=== PATIENT | male | born 1955 | race Caucasian/White ===

== ENCOUNTER 2018-09-07 05:31 | Observation (INO) | payer BC, OTHER ==
[~2018-09-07 05:31] MED LIST: Buffered Lidocaine 1% SYRIN* 1 ML/SYRINGE INTRADERM ONE; Bupivacaine 0.5%* 50 ML VIAL ONE; Lactated Ringers 1000 ML Bag* 1,000 ML IV SCH
[2018-09-07] MEDS ORDERED: Buffered Lidocaine 1% SYRIN* 1 ML/SYRINGE INTRADERM ONE (05:58)
[2018-09-07] MEDS ORDERED: ceFAZolin 2 GM PREMIX in ORs 2 GM/50 ML BAG IVPB ONE (05:58)
[2018-09-07] MEDS ORDERED: Lactated Ringers 1000 ML Bag* 1,000 ML IV SCH (06:00)
[2018-09-07] MEDS ORDERED: Sodium Citrate/Citric Acid* 15 ML UDC PO ONE (06:00)
[2018-09-07] MEDS ORDERED: Bupivacaine 0.25% SDV PF* 10 ML VIAL INJ ONE (07:14)
[2018-09-07] MEDS ORDERED: Bupivacaine 0.5%* 50 ML VIAL ONE (07:14)
[2018-09-07] MEDS ORDERED: Lidocaine 2% PF * 5 ML VIAL ONE (07:15)
[2018-09-07] MEDS ORDERED: Propofol* 10 MG/ML 20 ML BTL ONE (07:15)
[2018-09-07] MEDS ORDERED: Naloxone* 0.4 MG/ML 1 ML VIAL IV PRN (07:21)
[2018-09-07] MEDS ORDERED: Sodium Citrate/Citric Acid* 15 ML UDC ONE (07:25)
[2018-09-07] MEDS ORDERED: fentaNYL* 50 MCG/ML 2 ML VIAL (100 MCG VIAL) ONE ×2 (07:33→09:36)
[2018-09-07] MEDS ORDERED: Ondansetron INJ* 2 MG/ML VIAL ONE (08:44)
[2018-09-07] MEDS ORDERED: Dexamethasone IV* 4 MG/ML 1 ML (4 MG) ONE (08:44)
[2018-09-07] MEDS ORDERED: Ketorolac INJ* 30 MG/ML 1 ML VIAL ONE (08:44)
[2018-09-07] MEDS ORDERED: Ondansetron INJ* 2 MG/ML VIAL IV PRN (09:36)
[2018-09-07] MEDS ORDERED: Magnesium Hydroxide LIQ* 30 ML UDC PO PRN (09:36)
[2018-09-07] MEDS: fentaNYL* 50 MCG/ML 2 ML VIAL (100 MCG VIAL) IV PRN ×4 (09:37→10:15)
[2018-09-07] MEDS ORDERED: Acetaminophen IV 1GM/100ML * 100 ML ONE (09:44)
[2018-09-07] MEDS: oxyCODONE TAB* 5 MG TAB PO PRN ×3 (10:57→21:17)
--- NOTE | 2018-09-07 11:28 | OP ---
Operative Report - Blank - Operative Report Date of Operation: 09/07/18 Note: PATIENT: Luiz Lam DATE OF : 1955 DATE OF SURGERY: 09/07/2018 SURGEON: Ayden Max MD GAS METER CHECKER: CHASE He, whos assistance was necessary for positioning, retraction, help with instrumentation, and closure. ANESTHESIOLOGIST: Dr. Carey PREOPERATIVE DIAGNOSIS: Left painful 3rd hammertoe. 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 POSTOPERATIVE DIAGNOSIS: Left painful 3rd hammertoe. 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 OPERATION: 1. Left 3rd hammertoe correction with PIP resection arthroplasty 2. Left Achilles tendon lengthening 3. Left flexor hallucis longus (FHL) tendon lengthening 4. Left flexor digitorum longus (FDL) tendon lengthening 5. Left posterior tibial tendon (PTT) lengthening ANESTHESIA: GETA IMPLANTS: none TOURNIQUET TIME: Less than 2 hours minutes with a well-padded thigh tourniquet at 250mmHg SPECIMENS: none ESTIMATED BLOOD LOSS: minimal COMPLICATIONS: none STATUS: Stable from the operating room to the recovery room and then home. INDICATIONS FOR PROCEDURE: Aj has CP and a left foot equinovarus contracture and painful 3rd hammertoe. Both operative and non operative treatment alternatives were reviewed. Further, the nature and risks of surgery were reviewed in careful detail in the office as well as in the preoperative holding area. Our discussions regarding the risks of surgery included, but were not limited to, infection, wound problems, nerve injury, neuroma, RSD, persistent symptoms, blood clot, rupture, failure of the surgery, and even the remote chance of catastrophic complication. DESCRIPTION OF PROCEDURE: The patient was seen in the preoperative holding unit and informed written consent was obtained. The appropriate extremity was marked. The patient was then brought to the operating room and carefully positioned on the operating room table in the prone position. Anesthesia was induced. All bony prominences were padded with great care. A well-padded thigh tourniquet was placed. A chlorhexidine based pre-scrub was performed followed by a chloraprep prep and drape in standard sterile fashion. A surgical safety pause was then conducted in which we confirmed the appropriate patient, extremity, planned procedure, availability of equipment, indication and administration of prophylactic antibiotics, and DVT prophylaxis in the form of a compression boot on the non- surgical extremity. Exsanguination of the extremity was performed and the tourniquet was inflated. I began with an extensile longitudinal incision over the posterior medial ankle curved to the medial foot. I kept full thickness flaps anteriorly and posteriorly. I dissected out the Achilles tendon posteriorly. I then performed the cuts for a Z-lengthening. This allowed great dorsiflexion of the ankle past neutral. I then dissected out the posterior tibial tendon, which was dislocated from behind the medial malleolus. I then performed the cuts for a Z-lengthening. This helped correct the varus contracture of the foot. I was now able to bring the foot into a plantigrade position quite easily. Unfortunately, the hallux and the lesser toes were then flexed because of contracture of the FHL and FDL tendons. At the tarsal tunnel, I dissected out the FHL and FDL tendons. The posterior tibial nerve was protected throughout. I performed cuts for a Z-lengthening of both the FHL and FDL tendons. This allowed the toes to sit neutral. I then used 0 Ethibond suture to repair the PTT, FHL, and FDL tendons in a lengthened position. I used #2 Ethibond suture to repair the Achilles tendon in a lengthened position. Ankle motion was now nice and supple, and the foot easily came into a plantigrade position. I then reduced the tendons of the tarsal tunnel, including a chronically dislocated posterior tibial tendon. The retinacular tissue was repaired with a #1 Vicryl suture, and this held the tendons well reduced behind the medial malleolus. The Achilles tendon was then repaired in a lengthened position with #2 Fiberwire. This allowed me to passively dorsiflex the ankle past neutral. I then made an incision over the 3rd toe PIP joint and taken down to the level of bone and joint. The collateral ligaments were released on both sides. I then used a small oscillating saw to osteotomize the distal aspect of the proximal phalanx. This was then excised. I then placed a 0.062 K wire through the toe in an antegrade/retrograde fashion. The toe sat nice and straight clinically. There was no residual extension deformity appreciated at the MTP joint, so I decided not to perform a joint release and extensor tendon lengthening. The wounds were then copiously irrigated and meticulously closed in layers utilizing 3-0 Monocryl and 3-0 nylon. A sterile dressing was then applied followed by a splint with the ankle in a neutral position. The patient was then awakened from anesthesia and transferred to the recovery room in stable condition. There were no complications. All needle and sponge counts were correct at the end of the case. ATTESTATION: I attest I was present and scrubbed and performed the critical portions of the procedure myself. POSTOPERATIVE PLAN: The patient will follow-up in 2 weeks for likely suture removal and transition to a short leg nonweightbearing cast.
[2018-09-07] MEDS: Morphine INJ* 2 MG/ML 1 ML SYRINGE (TWO MG - NEW SYRINGE VERSION) IV PRN (12:52)
[2018-09-07] MEDS: tiZANidine TAB* 2 MG PO SCH ×2 (14:33→21:16)
[2018-09-07] MEDS: ceFAZolin 1 GM ADVAN(*) 1 GM in NS 0.9% 50 ML* 50 ML IVPB SCH (16:46)
[2018-09-07] MEDS ORDERED: Temazepam CAP* 15 MG PO PRN (21:00)
[2018-09-07] MEDS: Calcium/Vitamin D TAB 250/125* TAB PO SCH (21:15)
[2018-09-07] MEDS: Docusate CAP* 100 MG PO SCH (21:16)
[2018-09-07] MEDS: Acetaminophen TAB* 325 MG PO SCH (21:17)
--- NOTE | 2018-09-07 22:12 | CONS ---
CC: Dr. Ayden Max; Dr. Kushal Blood; Dr. Sanju Talley.* CONSULTATION REPORT: DATE OF CONSULT: 09/07/18 CONSULTING PROVIDER: Dr. Ayden Max. MY ATTENDING WHILE IN THE HOSPITAL: Dr. Kushal Blood. PRIMARY CARE PROVIDER: Dr. Sanju Talley. REASON FOR CONSULTATION: Co-management of comorbid medical conditions. HISTORY OF PRESENT ILLNESS: Mr. 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 The patient was preoperatively optimized by his primary care provider. The patient was examined postoperatively. There were some concerns as the patient had a moderately elevated blood pressure and pulse postoperatively as well as some pain which he described as indigestion. Due to concern for ischemia, a troponin, CK-MB, and EKG were ordered, none of which showed concern for ischemia. The patient felt fine at the time of evaluation. The patient had minimal pain in his leg with good response to morphine for pain control. The patient denied chest pain, shortness of breath, dizziness, palpitations, nausea, vomiting, abdominal pain. The patient had already urinated after his catheter had been removed preoperatively. The patient denied any recent changes in medications. No recent illnesses, no recent sick contacts. The patient was recently treated with 1 dose of Prolia due to severe osteoporosis leading to compression fractures requiring kyphoplasty in 2018, though the patient denies any continued pain from this. The patient is otherwise doing well. PAST MEDICAL HISTORY: Cerebral palsy; alcoholism, remained sober for 33 years; chronic pain; depression; BPH; osteoarthritis; osteoporosis. PAST SURGICAL HISTORY: Left hip arthroplasty, reconstruction of club foot and 37 subsequent surgeries; kyphoplasty in 2018. FAMILY HISTORY: The patient's mother of laryngeal cancer. The patient's father of alcohol abuse. The patient had a brother who of pneumonia, another brother who has chronic kidney disease of unknown severity. SOCIAL HISTORY: The patient is 1 month retired from the [employer]. The patient has not had an alcoholic beverage in 33 years. The patient has quit smoking over 20 years ago and smoked for 25 years before that. The patient denies illicit drug use. The patient lives with his son who is 22 years old. The patient is . The patient's surrogate decision maker will be his son, Shiva Lam. REVIEW OF SYSTEMS: A 14-point review of systems was reviewed and is negative except as above in the HPI. PHYSICAL EXAM: General: The patient is a 63-year-old male who appears stated age and sitting comfortably in the bed, in no acute distress. Vital Signs: At the time of evaluation, temperature 98.5, pulse rate 100, respiratory rate 16, oxygen saturation 96% on room air, blood pressure 178/96. HEENT: Head: Normocephalic, atraumatic. Sclerae anicteric. No conjunctival injection. Nasal mucosa moist. Oral mucosa moist. No pharyngeal erythema, discharge or exudate. Neck: Supple, nontender. No lymphadenopathy. No carotid bruits auscultated. No JVD. Cardiac: Tachycardic. No clicks, murmurs, gallops, or rubs. Pulses are 2+ in bilateral dorsalis pedis, posterior tibialis, and radial areas. Respiratory: Clear to auscultation bilaterally. No wheezes, rales, or rhonchi. Good air exchange bilaterally. Abdomen: Soft, nontender, nondistended. Bowel sounds present and normoactive in all 4 quadrants. No hepatospleno-megaly. No abdominal bruits auscultated. No hepatojugular reflux. Genitourinary: No suprapubic or CVA tenderness. Skin: Left leg covered with bulky dressing. Good capillary refill distally to incision. Neuro : Cranial nerves II through XII intact. No focal deficits. Alert and oriented x3. Psychiatric: Pleasant and cooperative. DIAGNOSTIC STUDIES/LAB DATA: Preoperatively, white blood cell count 6.9, hemoglobin 12.2, MCV 97, platelet count 222. INR 0.94, aPTT 28.3. Sodium 140, potassium 4.5, chloride 105, carbon dioxide 27, anion gap 8, BUN 15, creatinine 0.77, calcium 10.4, glucose 95. Urine unremarkable. ASSESSMENT AND PLAN: Impression: Mr. Lam is a 63-year-old male with past medical history significant for cerebral palsy, long history of alcoholism, and recurrent osteoporosis, who is undergoing Achilles tendon lengthening and is doing well postoperatively. 1. Postoperative state. Management per Orthopedics. The patient should have physical therapy and occupational therapy for pain control. The patient should have his hemoglobin and hematocrit trended briefly. The patient should have a bowel regimen and started urinating on his Bassett catheter. The patient should have postoperative antibiotics and DVT prophylaxis per Orthopedics. 2. Chest pain. The patient's chest pain he describes as indigestion pain which he has had numerous times in the past. The patient's blood pressure is now doing well. The patient's pulse rate is now again not tachycardic. These were likely related to postoperative pain. The patient has no ischemic changes on EKG and a negative troponin. The patient requires no further evaluation for this. 3. Cerebral palsy. Physical therapy as above. 4. Benign prostatic hyperplasia: The patient is urinating well. Continue the patient's tamsulosin. 5. Osteoporosis. Follow up as an outpatient. 6. Chronic pain. Postoperative pain control and continue the patient's home medications at discharge. 7. DVT prophylaxis. Per Orthopedics with Lovenox. 8. FEN. The patient will have a regular unrestricted diet and fluids until he is able to tolerate adequate oral intake. 9. Disposition, per Orthopedics. TIME SPENT: Approximately 60 minutes were spent on this consultation, 30 of which were spent [id number] with the patient, obtaining history and physical, and discussing treatment plan. Plan was discussed with my attending, Dr. Kushal Blood, and he is in agreement. CHASE LOPEZ [id number]/CPS #: [id number]
[2018-09-08] MEDS: ceFAZolin 1 GM ADVAN(*) 1 GM in NS 0.9% 50 ML* 50 ML IVPB SCH ×2 (00:37→08:32)
[2018-09-08] MEDS: oxyCODONE TAB* 5 MG TAB PO PRN ×5 (01:13→20:38)
[2018-09-08] MEDS: Zolpidem TAB* 10 MG PO PRN ×2 (01:17→21:56)
[2018-09-08 06:23] LABS: Mean Platelet Volume 7.8 fL (7.4-10.4); Platelet Count 183 10^3/uL (150-450)
[2018-09-08 06:36] LABS: Hematocrit 31 % (42-52); Hemoglobin 10.6 g/dL (14.0-18.0)
[2018-09-08 06:40] LABS: Calcium 9.9 mg/dL (8.6-10.3); EGFR African American 136.9 (>60); EGFR Non-African American 113.2 (>60); Potassium 3.9 mmol/L (3.5-5.0)
[2018-09-08] MEDS: Acetaminophen TAB* 325 MG PO SCH ×3 (06:49→21:56)
[2018-09-08] MEDS: Enoxaparin(*) 30 MG/0.3 ML SYR SUBCUT SCH (08:32)
[2018-09-08] MEDS: Calcium/Vitamin D TAB 250/125* TAB PO SCH ×2 (08:33→21:57)
[2018-09-08] MEDS: Tamsulosin CAP* 0.4 MG PO SCH (08:33)
[2018-09-08] MEDS: Docusate CAP* 100 MG PO SCH ×2 (08:33→21:57)
[2018-09-08] MEDS: tiZANidine TAB* 2 MG PO SCH ×3 (08:33→21:56)
[2018-09-08] MEDS ORDERED: Tramadol ER(NF) 100 MG TAB.ER PO SCH (09:00)
--- NOTE | 2018-09-08 13:05 | PN ---
Progress Note - Progress Note Date of Service: 09/08/18 SOAP: Subjective: Patient seen OOB in chair, left leg elevated. Having some foot pain but overall controlled on oral medication. He did fairly well with PT but still needs a little practice with mobility and transfers before returning to home independently. Does not want SNF but may consider PMRU. Objective: Vital Signs Temp 98.2 F 09/08/18 09:38 Pulse 94 09/08/18 09:38 Resp 20 09/08/18 11:51 BP 138/79 09/08/18 09:38 Pulse Ox 95 09/08/18 09:38 Intake & Output 09/07/18 09/08/18 09/08/18 18:59 06:59 18:59 Intake Total 2130 644 1280 Output Total 310 1200 600 Balance 1820 -556 680 Intake: IV Fluids 1720 20 1040 ABX - CEFAZOLIN 50 LR 1650 NS 20 20 990 NS 50ML, Cefazolin 2G 50 IVPB 54 ABX - CEFAZOLIN 54 Medicated IV 60 Cefazolin 60 Oral 350 570 240 Output: Urine 310 1200 600 Other: # Bowel Movements 0 Laboratory Results - last 24 hr 09/07/18 09/08/18 09/08/18 15:32 06:06 06:06 Hgb 10.6 L Hct 31 L Plt Count 183 MPV 7.8 Sodium 139 Potassium 3.9 Chloride 104 Carbon Dioxide 28 Anion Gap 7 BUN 14 Creatinine 0.70 Est GFR ( Amer) 136.9 Est GFR (Non-Af Amer) 113.2 BUN/Creatinine Ratio 20.0 Glucose 112 H Calcium 9.9 CK-MB (CK-2) 1.0 Troponin I 0.00 Left foot splint is intact and dry NVI distally Assessment:s/p POD #1 []1. Left 3rd hammertoe correction with PIP resection arthroplasty 2. Left Achilles tendon lengthening 3. Left flexor hallucis longus (FHL) tendon lengthening 4. Left flexor digitorum longus (FDL) tendon lengthening 5. Left posterior tibial tendon (PTT) lengthening Plan: []Non weight bearing LLE with splint PMRU vs home over weekend if safe with mobility and transfers
[2018-09-09] MEDS: oxyCODONE TAB* 5 MG TAB PO PRN ×6 (01:56→20:45)
[2018-09-09] MEDS: Morphine INJ* 2 MG/ML 1 ML SYRINGE (TWO MG - NEW SYRINGE VERSION) IV PRN (05:04)
[2018-09-09] MEDS: Acetaminophen TAB* 325 MG PO SCH ×3 (05:06→20:46)
[2018-09-09 05:37] LABS: Platelet Count 162 10^3/uL (150-450)
[2018-09-09] MEDS: Tamsulosin CAP* 0.4 MG PO SCH (08:26)
[2018-09-09] MEDS: Calcium/Vitamin D TAB 250/125* TAB PO SCH ×2 (08:26→20:45)
[2018-09-09] MEDS: Docusate CAP* 100 MG PO SCH ×2 (08:26→20:45)
[2018-09-09] MEDS: Enoxaparin(*) 30 MG/0.3 ML SYR SUBCUT SCH (08:26)
[2018-09-09] MEDS: tiZANidine TAB* 2 MG PO SCH ×3 (08:26→20:44)
[2018-09-09] MEDS: amLODIPine TAB* 5 MG PO SCH (09:10)
--- NOTE | 2018-09-09 11:05 | PN ---
Progress Note - Progress Note Date of Service: 09/09/18 SOAP: Subjective: [Subjective: Patient seen OOB in chair, left leg elevated. Had some foot pain last night but overall controlled on oral medication. He did fairly well with PT but still needs a little practice with mobility and transfers before returning to home independently. Is happy to go to [facility] on tuesday Objective: Left foot splint is intact and dry NVI distally Vital Signs Temp 98.3 F 09/09/18 07:37 Pulse 85 09/09/18 07:37 Resp 18 09/09/18 09:11 BP 170/84 09/09/18 08:25 Pulse Ox 95 09/09/18 07:37 Intake & Output 09/08/18 09/09/18 09/09/18 18:59 06:59 18:59 Intake Total 1430 700 Output Total 1150 875 Balance 280 -175 Intake: IV Fluids 1040 ABX - CEFAZOLIN 50 NS 990 Oral 390 700 Output: Urine 1150 875 Other: Estimated Void Small # Bowel Movements 1 Estimated Stool Amount Small # Voids 1 Assessment:s/p POD #1 1. Left 3rd hammertoe correction with PIP resection arthroplasty 2. Left Achilles tendon lengthening 3. Left flexor hallucis longus (FHL) tendon lengthening 4. Left flexor digitorum longus (FDL) tendon lengthening 5. Left posterior tibial tendon (PTT) lengthening Plan: []Non weight bearing LLE with splint PMRU on Tuesday
[2018-09-09] MEDS: Zolpidem TAB* 10 MG PO PRN (23:53)
[2018-09-10] MEDS: oxyCODONE TAB* 5 MG TAB PO PRN ×4 (05:37→21:20)
[2018-09-10] MEDS: Acetaminophen TAB* 325 MG PO SCH ×3 (05:38→21:20)
[2018-09-10 06:03] LABS: Mean Platelet Volume 7.5 fL (7.4-10.4); Platelet Count 164 10^3/uL (150-450)
[2018-09-10] MEDS: Calcium/Vitamin D TAB 250/125* TAB PO SCH ×2 (08:09→21:23)
[2018-09-10] MEDS: tiZANidine TAB* 2 MG PO SCH ×3 (08:09→21:23)
[2018-09-10] MEDS: Tamsulosin CAP* 0.4 MG PO SCH (08:09)
[2018-09-10] MEDS: Docusate CAP* 100 MG PO SCH ×2 (08:09→21:23)
[2018-09-10] MEDS: amLODIPine TAB* 5 MG PO SCH (08:10)
[2018-09-10] MEDS: Enoxaparin(*) 30 MG/0.3 ML SYR SUBCUT SCH (08:11)
--- NOTE | 2018-09-10 11:23 | PN ---
Progress Note - Progress Note Date of Service: 09/10/18 SOAP: Subjective: Patient seen OOB in chair, left leg elevated. Had some foot pain last night but overall controlled on oral medication. He did fairly well with PT but still needs a little practice with mobility and transfers before returning to home independently. Is happy to go to [facility] on tuesday Objective: Left foot splint is intact and dry NVI distally Vital Signs Temp 98.0 F 09/10/18 09:32 Pulse 85 09/10/18 09:32 Resp 15 09/10/18 09:32 BP 131/80 09/10/18 09:32 Pulse Ox 97 09/10/18 09:32 Intake & Output 09/09/18 09/10/18 09/10/18 18:59 06:59 18:59 Intake Total 230 370 240 Output Total 250 750 200 Balance -20 -380 40 Intake: Oral 230 370 240 Output: Urine 250 750 200 Other: Estimated Void Small # Bowel Movements 1 0 Estimated Stool Amount Small # Voids 1 Assessment:s/p POD #3 1. Left 3rd hammertoe correction with PIP resection arthroplasty 2. Left Achilles tendon lengthening 3. Left flexor hallucis longus (FHL) tendon lengthening 4. Left flexor digitorum longus (FDL) tendon lengthening 5. Left posterior tibial tendon (PTT) lengthening Plan: []Non weight bearing LLE with splint PMRU on Tuesday
--- NOTE | 2018-09-10 16:16 | PN ---
Subjective Date of Service: 09/10/18 Interval History: Patient is Feeling well. Has some decreased exercise tolerance but no CP, SOB, Dizziness, palpitations, F/C, N/V, abdominal pain, diarrhea, dysuria, or excessive pain at the surgical site. Family History: Unchanged from Admission Social History: Unchanged from Admission Past Medical History: Unchanged from Admission Objective Active Medications: Acetaminophen (Tylenol Tab*) 975 mg PO Q8HR [facility] Last Admin: 09/10/18 13:58 Dose: 975 mg Amlodipine Besylate (Norvasc Tab*) 2.5 mg PO DAILY [facility] Last Admin: 09/10/18 08:10 Dose: 2.5 mg Calcium/Vitamin D (Oscal D Tab 250/125*) 2 tab PO BID [facility] Last Admin: 09/10/18 08:09 Dose: 2 tab Docusate Sodium (Colace Cap*) 100 mg PO BID [facility] Last Admin: 09/10/18 08:09 Dose: 100 mg Enoxaparin Sodium (Lovenox(*)) 30 mg SUBCUT Q24H [facility] Last Admin: 09/10/18 08:11 Dose: 30 mg Magnesium Hydroxide (Milk Of Magnolga Liq*) 30 ml PO Q6H PRN PRN Reason: constipation Last Admin: 09/09/18 07:26 Dose: 30 ml Morphine Sulfate (Morphine Inj (Syringe))*) 2 mg IV Q2H PRN PRN Reason: PAIN Last Admin: 09/09/18 05:04 Dose: 2 mg Ondansetron HCl (Zofran Inj*) 4 mg IV Q6H PRN PRN Reason: nausea Oxycodone HCl (Roxycodone Tab*) 10 mg PO Q4H PRN PRN Reason: PAIN - SEVERE Last Admin: 09/10/18 15:48 Dose: 10 mg Oxycodone HCl (Roxycodone Tab*) 5 mg PO Q4H PRN PRN Reason: PAIN - MODERATE Last Admin: 09/09/18 06:43 Dose: 5 mg Tamsulosin HCl (Flomax Cap*) 0.4 mg PO QAM [facility] Last Admin: 09/10/18 08:09 Dose: 0.4 mg Tizanidine HCl (Zanaflex Tab*) 4 mg PO TID [facility] Last Admin: 09/10/18 13:58 Dose: 4 mg Zolpidem Tartrate (Ambien Tab*) 10 mg PO QPM PRN PRN Reason: INSOMNIA Last Admin: 09/09/18 23:53 Dose: 10 mg Vital Signs - 8 hr 09/10/18 09/10/18 09/10/18 09:32 11:15 11:33 Temperature 98.0 F 98.2 F Pulse Rate 85 111 Respiratory 15 17 18 Rate Blood Pressure 131/80 123/71 (mmHg) O2 Sat by Pulse 97 98 Oximetry 09/10/18 09/10/18 09/10/18 11:34 13:58 14:02 Temperature Pulse Rate 100 110 Respiratory 18 Rate Blood Pressure (mmHg) O2 Sat by Pulse Oximetry 09/10/18 09/10/18 09/10/18 15:19 15:48 15:54 Temperature 98.8 F Pulse Rate 110 Respiratory 18 20 Rate Blood Pressure 138/81 (mmHg) O2 Sat by Pulse 99 99 Oximetry Oxygen Devices in Use Now: None Appearance: Patient is a 63yo male who appears stated age and is sitting in the bed in [facility]. Eyes: No Scleral Icterus, PERRLA Ears/Nose/Mouth/Throat: NL Teeth, Lips, Gums, Clear Oropharnyx, Mucous Membranes Moist Neck: NL Appearance and Movements; NL JVP, Trachea Midline Respiratory: Symmetrical Chest Expansion and Respiratory Effort, Clear to Auscultation Cardiovascular: NL Sounds; No Murmurs; No JVD, RRR, No Edema Abdominal: NL Sounds; No Tenderness; No Distention, No Hepatosplenomegaly Lymphatic: No Cervical Adenopathy Extremities: No Edema, No Clubbing, Cyanosis Skin: No Nodules or Sclerosis, - - Left Leg covered in bulky dressing. Neurological: Alert and Oriented x 3, NL Sensation, NL Muscle Strength and Tone , - - CN II-XII intact. Result Diagrams: 09/10/18 05:45 09/08/18 06:06 Assess/Plan/Problems-Billing Assessment: - Patient Problems (1) Tachycardia Current Visit: Yes Status: Acute Code(s): R00.0 - TACHYCARDIA, UNSPECIFIED SNOMED Code(s): 1645926 Comment: - Persistent intermittent tachycardia, asymptomatic. - Clear Sinus Tachy on EKG. Low suspicion for PE given no SOB, CP, hypotension or hypoxia - Check H/H from this AM to assess for anemia - Likely due to postoperative fluid shifts, no futher workup needed at this time. (2) Post-operative state Current Visit: Yes Status: Acute Code(s): Z98.890 - OTHER SPECIFIED POSTPROCEDURAL STATES SNOMED Code(s): 08800757 Comment: - Managment per Orthopedics - Bowel Regimen, PT/OT, Pain control (3) DVT prophylaxis Current Visit: Yes Status: Acute Code(s): Z29.9 - ENCOUNTER FOR PROPHYLACTIC MEASURES, UNSPECIFIED SNOMED Code(s): 334514461 Comment: - Per Orthopedics (4) Full code status Current Visit: Yes Status: Acute Code(s): Z78.9 - OTHER SPECIFIED HEALTH STATUS SNOMED Code(s): 362562994 Status and Disposition: PMRU Tomorrow, Feel Free to call with any questions, we will sign off at this time. Thank you for this consult.
[2018-09-10 16:27] LABS: Hematocrit 35 % (42-52); Hemoglobin 11.9 g/dL (14.0-18.0)
[2018-09-10] MEDS: Zolpidem TAB* 10 MG PO PRN (23:00)
[2018-09-11 05:10] LABS: Mean Platelet Volume 7.7 fL (7.4-10.4); Platelet Count 178 10^3/uL (150-450)
[2018-09-11] MEDS: Acetaminophen TAB* 325 MG PO SCH (05:55)
[2018-09-11 08:14] VITALS: BP 124/79
[2018-09-11] MEDS: oxyCODONE TAB* 5 MG TAB PO PRN ×2 (08:20→12:27)
[2018-09-11] MEDS: tiZANidine TAB* 2 MG PO SCH (08:21)
[2018-09-11] MEDS: Docusate CAP* 100 MG PO SCH (08:21)
[2018-09-11] MEDS: amLODIPine TAB* 5 MG PO SCH (08:21)
[2018-09-11] MEDS: Tamsulosin CAP* 0.4 MG PO SCH (08:21)
[2018-09-11] MEDS: Calcium/Vitamin D TAB 250/125* TAB PO SCH (08:21)
[2018-09-11] MEDS: Enoxaparin(*) 30 MG/0.3 ML SYR SUBCUT SCH (08:22)
--- NOTE | 2018-09-11 08:31 | DS ---
Orthopedic Discharge Summary - Discharge Summary Date of Admission:09/07/18 Date of Discharge: 09/11/2018 Date of Surgery: 09/07/2018 Attending Orthopedic Provider: Dr. Max Pre-operative Diagnosis: Left foot 3rd hammertoe and contracture. Operative Procedure: 1. Left 3rd hammertoe correction with PIP resection arthroplasty 2. Left Achilles tendon lengthening 3. Left flexor hallucis longus (FHL) tendon lengthening 4. Left flexor digitorum longus (FDL) tendon lengthening 5. Left posterior tibial tendon (PTT) lengthening Disposition of Patient: Good Condition of Patient: Good History: KINGSLEY CONWAY is a 63 year old M with years of increasingly left foot contracture. Patient has failed conservative management and has elected to undergo a Left 3rd hammertoe correction with PIP resection arthroplasty, left Achilles tendon lengthening, Left flexor hallucis longus tendon lengthening, left flexor digitorum longus tendon lengthening and left posterior tibial tendon lengthening. Hospital Course: KINGSLEY was admitted to [facility] on 09/07/18. Patient underwent a Left 3rd hammertoe correction with PIP resection arthroplasty, left Achilles tendon lengthening, Left flexor hallucis longus tendon lengthening, left flexor digitorum longus tendon lengthening and left posterior tibial tendon lengthening without complication followed by a brief recovery in PACU and transfer to the Short Stay Surgical Unit in stable condition. Our hospitalist service, physical therapy and occupational therapy also participated in this patients care. Post-op day 1: patient was alert and in no acute distress. Dressing was clean, dry and intact. Operative extremity sensation intact to light touch distally. Post-op day two: Patients disposition remained the same. POD 3: Pt was doing well, pain well controlled. POD 4 Patient was deemed to be medically and orthopedically stable for discharge. Physical therapy goals were met. Home Medications Medication Instructions Recorded Confirmed Type Calcium Carb, Citrate/Vit D3 2 tab PO BID 08/08/18 09/07/18 History [Calcium + D3 ER Tablet] Hydrocodone/Acetaminophen [Vicodin 1 - 2 tab PO QID PRN MDD 6 08/08/18 09/07/18 History 5-300 mg Tablet] Tramadol ER(NF) [Ultram HCl ER(NF)] 50 mg PO QAM 08/08/18 09/07/18 History Zolpidem Tartrate [Ambien] 10 mg PO QPM PRN 08/08/18 09/07/18 History tiZANidine TAB* [Zanaflex TAB*] 4 mg PO TID 08/08/18 09/07/18 History Flomax 0.4 mg PO QAM 09/07/18 09/07/18 History Discharge Instructions following Orthopedic Surgery: Activity: * NWB LLE * Continue physical therapy and occupational therapy exercises as shown Wound care: Dressing to remain on and dry until post op visit Call Orthopedic office for: * Increased drainage * Redness * Increased pain * Fever Go to ER with shortness of breath or chest pain. Diet: * Regular diet * Increase fluids and fiber to prevent constipation. * Continue to use stool softeners, call office if no bowel motion within 48 hours. Medications See Home Medication List in your packet for medications that you should take after discharge. DVT Prophylaxis: Lovenox Dosin mg twice a day Pain Control: Oxycodone 5mg take 1 - 2 tabs every 4 -6 hours as needed for pain FOLLOW UP: Follow up with Dr. Max Within 10-14 days, call for appointment Please call our office with any questions or concerns ([phone])
== END 2018-09-11 12:30 ==
LOC: OR 05:31 → SSU 10:43 → INTOOBSV 10:43
PROVIDERS: ADMIT Orthopaedic Surgery; ATTEND Orthopaedic Surgery
DX: M20.42 Other hammer toe(s) (acquired), left foot (principal); R00.0 Tachycardia, unspecified; M67.02 Short Achilles tendon (acquired), left ankle; G80.9 Cerebral palsy, unspecified; F10.21 Alcohol dependence, in remission; N40.0 Benign prostatic hyperplasia without lower urinary tract symptoms; M19.90 Unspecified osteoarthritis, unspecified site; M81.0 Age-related osteoporosis without current pathological fracture
CPT/HCPCS: 36415; 80048; 82553; 84484; 85014; 85018; 85049; 93005; 96372; 96374; 96375; A9270-GY; G0378; J0690; J1100; J1650; J1885; J2270; J2405; J2704; J3010; J3490

== ENCOUNTER 2018-09-11 09:07 | Inpatient (IN) | payer BC ==
--- OUTSIDE RECORDS SUMMARY | 2018-09-11 12:48 | XMS REPORT | Continuity of Care Document ---
:1955 External Reference #:[id number] Author Name Emy Yip Care Team Providers Name Role Phone Sanju Talley MD Primary Care Physician Unavailable Payers Date Identification Numbers Payment Provider Subscriber Policy Number: [id number] [facility] Luiz Lam PayID: [id number] [address] [place] [address] Problems Active Problems Provider Date Tendon contracture Ayden Max MD Onset: 07/31/2018 Hammer toe Ayden Max MD Onset: 07/31/2018 Cerebral palsy Ayden Max MD Onset: 07/31/2018 Family History Date Family Member(s) Observation Comments General Cancer Social History Type Date Description Comments Sex Unknown Occupation Currently Working Tobacco Use Start: Unknown End: Unknown Patient is a former smoker Smoking Status Reviewed: 08/30/18 Patient is a former smoker Allergies, Adverse Reactions, Alerts Active Allergies Reaction Severity Comments Date Gabapentin 07/31/2018 Medications Active Medications SIG Qnty Indications Ordering Provider Date Vitamin D 1 weekly Unknown (Ergocalciferol) [id number] Capsules Calcium 600 + D 1 by mouth twice a Unknown day [id number] Tablets Prolia 60mg sq every 6 Unknown 60mg/ml Soln months Prefill Syringe Zanaflex 1 tab by mouth Unknown 4mg Capsules every 6 hours as needed presciber dr [facility] Ambien CR 1 by mouth every Unknown 12.5mg day Tablets ER Hydrocodone-Acetamino 1 tab by mouth Unknown phen every 4 hours as 10-325mg Tablets needed Tramadol HCL 1-2 tablets by Unknown 50mg mouth every 6 hours Tablets as needed pain Vital Signs Date Vital Result Comment 08/30/2018 3:21pm Height 64 inches 5'4" Weight 128.00 lb Heart Rate 120 /min BP Systolic 162 mmHg BP Diastolic 96 mmHg Respiratory Rate 20 /min Body Temperature 99.1 F Pain Level 7 BMI (Body Mass Index) 22.0 kg/m2 07/31/2018 1:22pm Height 64 inches 5'4" Weight 120.00 lb BP Systolic 130 mmHg BP Diastolic 82 mmHg Respiratory Rate 15 /min Body Temperature 98.2 F Pain Level 7 BMI (Body Mass Index) 20.6 kg/m2 Results Test Date Facility Test Result H/L Range Note Urinalysis Profile 08/08/2018 [facility] Urine Color Straw [address] [place] [address] [phone] Urine Appearance Clear Urine Specific [place] 1.004 Low 1.010-1.030 Urine pH 5.0 N 5-9 Urine Urobilinogen Negative Negative Urine Ketones Negative Negative Urine Protein Negative Negative Urine Leukocytes Negative Negative Urine Blood Negative Negative Urine Nitrite Negative Negative Urine Bilirubin Negative Negative Urine Glucose Negative Negative CBC Auto Diff 08/08/2018 [facility] White Blood 6.9 10^3/uL N 3.5-10.[address] [place] [address] [phone] Red Blood Count 3.58 10^6/uL Low 4.18-5.48 Hemoglobin 12.2 g/dL Low 14.0-18.0 Hematocrit 35 % Low 36-46 Mean Corpuscular Volume 97 fL High 80-94 Mean Corpuscular Hemoglobin 34 pg High 27-31 Mean Corpuscular HGB Conc 35 g/dL N 31-36 Red Cell Distribution Width 14 % N 10.5-15 Platelet Count 222 10^3/uL N 150-450 Mean Platelet Volume 8.4 fL N 7.4-10.4 Abs Neutrophils 5.0 10^3/uL N 1.5-7.7 Abs Lymphocytes 1.2 10^3/uL N 1.0-4.8 Abs Monocytes 0.6 10^3/uL N 0-0.8 Abs Eosinophils 0 10^3/uL N 0-0.6 Abs Basophils 0 10^3/uL N 0-0.2 Abs Nucleated RBC 0 10^3/uL Granulocyte % 72.5 % Lymphocyte % 17.4 % Monocyte % 9.0 % Eosinophil % 0.4 % Basophil % 0.7 % Nucleated Red Blood Cells % 0 Inr/Protime 08/08/2018 [facility] Inr 0.94 N 0.82-1.[address] [place], [place] [id number] [phone] Laboratory test 08/08/2018 [facility] Partial 28.3 seconds N 26.0-36.[address] [place] [address] PTT [phone] Basic Metabolic 08/08/2018 [facility] Sodium 140 mmol/L N 135- [address] [place] [address] [phone] Potassium 4.5 mmol/L N 3.5-5.0 Chloride 105 mmol/L N 101-111 Co2 Carbon Dioxide 27 mmol/L N 22-32 Anion Gap 8 mmol/L N 2-11 Glucose 95 mg/dL N 70-100 Blood Urea Nitrogen 15 mg/dL N 6-24 Creatinine 0.77 mg/dL N 0.67-1.17 BUN/Creatinine Ratio 19.5 N 8-20 Calcium 10.4 mg/dL High 8.6-10.3 Egfr Non- 101.4 >60 Egfr 122.7 >60 2 Urine Culture And 08/08/2018 [facility] Urine Culture SEE RESULT [address] [place] [address] [phone] 1 Standard intensity warfarin therapeutic range: 2.0-3.0 High intensity warfarin therapeutic range: 2.5-3.5 2 Because ethnic data is not always readily available, this report includes an eGFR for both -Americans and non- Americans. The National Kidney Disease Education Program (NKDEP) does not endorse the use of the MDRD equation for patients that are not between the ages of 18 and 70, are , have extremes of body size, muscle mass, or nutritional status, or are non- or non-. According to the National Kidney Foundation, irrespective of diagnosis, the stage of the disease is based on the level of kidney function: Stage Description GFR(mL/min/1.73 m(2)) 1 Kidney damage with normal or decreased GFR 90 2 Kidney damage with mild decrease in GFR 60-89 3 Moderate decrease in GFR 30-59 4 Severe decrease in GFR 15-29 5 Kidney failure <15 (or dialysis) 3 SEE RESULT BELOW Name: LUIZ LAM : [address]: Ayden Max MD Acct: [id number] Unit: [id number] AGE: 63 Location: [facility] Re08/08/18 SEX: M Status: REG REF SPEC: [id number] ISHAAN: 08/08/18-1050 [facility] DR: Ayden Max MD REQ: [id number] RECD: 08/08/18120 STATUS: ROMIE RODRIGES DR: Sanju Talley MD _ SOURCE: URINE SPDESC: ORDERED: Urine Culture QUERIES: Urine Source: Clean Catch Procedure Result Reported Site Urine Culture Final 08/09/18- 1209 ML No Growth (<1,000 CFU/mL) * ML - Main Lab . END OF REPORT DEPARTMENT OF PATHOLOGY, [address] [place] [address] Vishal Rodriguez M.D. Director [facility] # [id number] Encounters Type Date Location Provider Dx Diagnosis Office Visit 07/31/2018 [facility], M20.42 Other hammer 1:00p [facility] HAMM toe(s) (acquired), left foot M67.02 Short Achilles tendon (acquired), left ankle G80.9 Cerebral palsy, unspecified Plan of Treatment Future Appointment(s):09/20/2018 2:45 pm - Ayden Max MD at [facility]
--- NOTE | 2018-09-11 13:19 | HP ---
Amended report to correct patient account number. CC: Dr. Keyshawn Cuevas; Dr. Max* REHABILITATION ADMISSION HISTORY AND PHYSICAL: DATE OF ADMISSION: 09/11/18 PRIMARY CARE PROVIDER: Dr. Keyshawn Cuevas. ORTHOPEDIC SURGEON: Dr. Max. REASON FOR ADMISSION: Cerebral palsy, status post tendon lengthening surgery to the left ankle and third hammertoe correction. 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 He developed contracture in his left foot and ankle and has been followed Dr. Max. On 09/07/18, he was admitted to Dr. Max's service and underwent lengthening of his left Achilles, flexor hallucis longus, flexor digitorum longus, and posterior tibialis tendons as well as correction of a third hammertoe deformity. He was put into a splint at the time of surgery and has been nonweightbearing to his left lower extremity. Postoperatively, he has been seen by the hospitalist service for episodes of hypertension and tachycardia. Initially, he had some indigestion that was initially described as chest pain. EKG has been negative on 2 occasions except for tachycardia. Troponins were negative. He is asymptomatic during these episodes. He was started on Norvasc 2.5 mg every day. No further workup was deemed necessary by the hospitalist service. At home, he normally uses tramadol ER 300 mg a day and [place] 10/325 for chronic pain management. Here he has been managing with Roxycodone 5 to 10 mg q.4 hours as needed. He has various musculoskeletal pains due to the arthritis as well as he had back pain last year with a compression fracture that required kyphoplasty. These are the pains he normally takes his medications for. Prior to admission, he required minimum amount of assistance for lower body dressing and was otherwise independent with dressing, toileting, and ambulating using a rolling walker. Eighteen months ago, he was doing well enough to be using crutches but really has had used rolling walker and even sit on it for mobility. With occupational therapy here, he has required minimal amount of assistance for dressing, toileting, and showering. For physical therapy, he requires minimal amount of assistance for bed mobility and contact guard assistance for transferring and ambulating with a rolling walker. PAST MEDICAL HISTORY: 1. Cerebral palsy with spastic diplegia. 2. History of alcoholism, sober for 33 years. 3. Chronic pains due to osteoarthritis. 4. History of compression fracture. 5. Depression. 6. BPH. 7. Osteoporosis. 8. Status post left total hip arthroplasty. 9. 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 10. Leg length discrepancy, short on the left. He has an orthotic shoe that he wears on the right with a lift. 11. Status post kyphoplasty in 2018. MEDICATIONS: 1. Colace 100 mg b.i.d. 2. Flomax 0.4 mg q.a.m. 3. Lovenox 30 mg q.24 hours for DVT prophylaxis. 4. Norvasc 2.5 mg every day. 5. Os-Chuck D 250/125 two tablets b.i.d. 6. Tylenol 975 mg q.8 hours scheduled. 7. Zanaflex 4 mg t.i.d. 8. Ambien 10 mg q.h.s. p.r.n. insomnia. 9. Milk of magnesia p.r.n. 10. Roxycodone 5 to 10 mg q.4 hours p.r.n. pain. ALLERGIES: GABAPENTIN, causes swelling. FAMILY HISTORY: Mother laryngeal cancer. Father alcoholism. Brother chronic kidney disease. SOCIAL HISTORY: He lives with his 22-year-old son, Shiva in [place]. Their home is one level and there is a ramp to enter. If he cannot make decision for himself, his son Shiva is his healthcare proxy. His phone number is . He quit alcohol 33 years ago. He quit smoking 20 years ago. 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. REVIEW OF SYSTEMS: See history of present illness and past medical history. The remainder of 13-system review was noncontributory. PHYSICAL EXAMINATION GENERAL: Well developed, well nourished, appearing stated age. Mental Status: No acute distress. Alert and oriented x3. VITAL SIGNS: Temperature 98.2, pulse 91, respirations 17, oxygenation 95% on room air, blood pressure 124/79. HEENT: Normocephalic, atraumatic. Oropharynx clear with upper dentures. Moist mucous membranes. NECK: Supple. No lymphadenopathy. LUNGS: Clear to auscultation bilaterally. HEART: Slightly tachycardic but otherwise regular. ABDOMEN: Active bowel sounds, soft, nontender, and nondistended. EXTREMITIES: His left lower extremity from the knee down is in a splint. His toes are visible, which he cannot move because they are fused. Right lower extremity, no edema. He has an orthotic shoe on at this time and has a small right foot. NEUROLOGIC: Upper extremities: Motor is 5/5 bilaterally with normal sensation. He has 5/5 strength in his right hip and knee with 5/5 limited range of motion, dorsiflexion on the right. Toes are not tested as he has his shoe on at this time. Left lower extremity: Motor 2/5 hip flexion, 2/5 to 3/5 knee extension. Rest of his leg is splinted. He has normal sensation in both legs. DIAGNOSTIC STUDIES/LAB DATA: On 09/10, hemoglobin is 11.9, hematocrit 35, platelets 164. IMPRESSION: A 63-year-old man with spastic diplegia secondary to cerebral palsy , status post tendon lengthening surgery to the left ankle and correction of left third hammertoe. He will be admitted to [facility] so that he can return to living independently with his son. PLAN: 1. Status post tendon lengthening surgery and hammertoe correction. He will remain nonweightbearing left lower extremity. He is to follow up with Dr. Max 14 days postop. His pain will be regulated with Roxycodone on an as- needed basis. Consider transition in the future back to tramadol ER and [place]. 2. Episodes of tachycardia and hypertension. Continue with Norvasc 2.5 every day and monitor his symptoms. He will have a panel of labs tomorrow including electrolytes. 3. DVT prophylaxis. Continue with Lovenox. It is not clear if he needs to continue this at home. If he does, he will need to learn self administration. 4. Benign prostatic hypertrophy. Continue with Flomax. 5. Osteoporosis. Calcium with vitamin D. Status post Prolia as an outpatient. 6. Insomnia. Luis licona 7. Cerebral palsy. Continue Zanaflex as scheduled. 8. Advance directives. He is a full code. His son is his healthcare proxy. Phone number is [phone]. ESTIMATED LENGTH OF STAY: Five to seven days and return to home with family support. [id number]/MAGGIE #: [id number] VALARIE
[2018-09-11] MEDS ORDERED: Bisacodyl SUPP* 10 MG SUPP PR PRN (13:35)
[2018-09-11] MEDS ORDERED: Al Hydrox/Mg Hydrox/Simet LIQ* 30 ML UDC PO PRN (13:35)
[2018-09-11] MEDS ORDERED: Senna TAB PO PRN (13:35)
[2018-09-11] MEDS ORDERED: Magnesium Hydroxide LIQ* 30 ML UDC PO PRN (13:35)
[2018-09-11] MEDS ORDERED: oxyCODONE TAB* 5 MG TAB PO PRN (13:42)
[2018-09-11] MEDS: Acetaminophen TAB* 325 MG PO SCH ×2 (14:20→21:38)
[2018-09-11] MEDS: tiZANidine TAB* 2 MG PO SCH ×2 (14:21→21:33)
[2018-09-11] MEDS: oxyCODONE TAB* 5 MG TAB PO PRN ×2 (18:15→23:34)
[2018-09-11] MEDS: Calcium/Vitamin D TAB 250/125* TAB PO SCH (21:31)
[2018-09-11] MEDS: Docusate CAP* 100 MG PO SCH (21:37)
[2018-09-11] MEDS: Zolpidem TAB* 10 MG PO PRN (23:35)
[2018-09-12] MEDS: Acetaminophen TAB* 325 MG PO SCH ×3 (05:17→21:26)
[2018-09-12 05:23] LABS: ABS Eosinophils 0.2 10^3/ul (0-0.6); ABS Lymphocytes 2.1 10^3/ul (1.0-4.8); ABS Monocytes 0.8 10^3/ul (0-0.8); ABS Neutrophils 4.1 10^3/ul (1.5-7.7); Eosinophil % 2.4 %; Hematocrit 34 % (42-52); Hemoglobin 11.9 g/dL (14.0-18.0); Lymphocyte % 29.4 %; Mean Corpuscular HGB Conc 35 g/dL (31-36); Mean Corpuscular Hemoglobin 34 pg (27-31); Mean Corpuscular Volume 97 fL (80-94); Mean Platelet Volume 7.7 fL (7.4-10.4); Platelet Count 182 10^3/uL (150-450); Red Blood Count 3.52 10^6 /uL (4.18-5.48); Red Cell Distribution Width 13 % (10.5-15); White Blood Count 7.3 10^3/uL (3.5-10.8)
[2018-09-12 05:40] LABS: Albumin 4.1 g/dL (3.2-5.2); Albumin/Globulin Ratio 1.5 (1-3); BUN/Creatinine Ratio 27.5 (8-20); Calcium 10.2 mg/dL (8.6-10.3); EGFR African American 117.4 (>60); Globulin 2.7 g/dL (2-4); Potassium 4.3 mmol/L (3.5-5.0); Total Bilirubin 0.7 mg/dL (0.2-1.0); Total Protein 6.8 g/dL (6.4-8.9)
[2018-09-12] MEDS: oxyCODONE TAB* 5 MG TAB PO PRN ×4 (08:32→23:50)
[2018-09-12] MEDS: amLODIPine TAB* 5 MG PO SCH (08:34)
[2018-09-12] MEDS: tiZANidine TAB* 2 MG PO SCH ×3 (08:35→21:25)
[2018-09-12] MEDS: Calcium/Vitamin D TAB 250/125* TAB PO SCH ×2 (08:36→21:26)
[2018-09-12] MEDS: Tamsulosin CAP* 0.4 MG PO SCH (08:36)
[2018-09-12] MEDS: Docusate CAP* 100 MG PO SCH ×2 (08:36→21:25)
[2018-09-12] MEDS: Enoxaparin(*) 30 MG/0.3 ML SYR SUBCUT SCH (08:37)
--- NOTE | 2018-09-12 12:26 | PMRUTEAM ---
PMRU: Team Meeting Current Status: Nursing: Current Status Skin Deviations [L foot/ankle] Incision Skin Deviation Description [L Splint in place foot/ankle] Physical Therapy: Current Status Bed Mobility Assistance Min Assist Transfer Mobility Assistance Contact Guard Assist Ambulation Assistance Contact Guard Assist Ambulation Assistive Devices Rolling Walker Stairs Assistance Contact Guard 1 stair Occupational Therapy: Current Status Upper Body Dressing Supervision Lower Body Dressing Mod Assist Bathing Min Assist Toileting Mod Assist Toilet Transfer Min Assist Shower Transfer Contact Guard Assist,Min Assist Eating Ind with Adaptive Equip Rec Therapy: Current Status Summary of Assessment and Introduce Recreation Therapy Services today (09/12 / Clinical Impression 19) Social Work: Current Status Discharge Plan return home with home care svs and family support Potential for Family Training pt's son is involved and supportive Anticipated Discharge Home Destination Discharge With home care svs and family support Nutrition: Current Status Monitoring new admission 09/11. Nutrition assessment planned on 09/18 per protocol, unless otherwise consulted . Goals: Nutrition: Goals Intervention Goals TBD Social Work: Goals Discharge Plan return home with home care svs and family support Potential for Family Training pt's son is involved and supportive Anticipated Discharge Home Destination Discharge With home care svs and family support PHYSICAL THERAPY: Independent BedMobility, transfers, ambulation 50 feet OCCUPATIONAL THERAPY: Mod I Toileting, toilet transfers, UB Dressing. Min Assist LB dressing Care Plan: Care Plan Cardiovascular- Improve/Maintain Start: 09/12/18 00:27 Freq: QSHIFT Status: Active Target: Protocol: Activity Type Activity Date Activity User E-Sign Co-Sign Detail Recorded Client Recorded Date Recorded By Document 09/12/18 00:28 [id number] 09/12/18 00:29 [id number] 09/12/18 00:28 PMRU Outcome: Cardiovascular Vital Signs q Shift for 48hrs Then BID Yes Daily Weight Ordered No Current Cardiovascular Outcome/Goal Maintain/ Achieve Baseline HR, BP , Perfusion Maintain/ Improve Perfusion Free of Abnormal Cardiac Symptoms DVT Prophylaxis- Improve/Maintain Start: 09/12/18 00:27 Freq: QSHIFT Status: Active Target: Protocol: Activity Type Activity Date Activity User E-Sign Co-Sign Detail Recorded Client Recorded Date Recorded By Document 09/12/18 00:28 [id number] 09/12/18 00:29 [id number] 09/12/18 00:28 PMRU Outcome: DVT Prophylaxis Outcome/Goals Remains Free of DVT Complies with DVT Prophylaxis /Treatment TEDS Stockings on Every AM, Off at HS Discharge Planning - Improve/Maintain Start: 09/12/18 00:27 Freq: DAILY Status: Active Target: Protocol: Activity Type Activity Date Activity User E-Sign Co-Sign Detail Recorded Client Recorded Date Recorded By Document 09/12/18 00:27 [id number] 09/12/18 00:27 09/12/18 00:27 PMRU Outcome: Discharge Planning Update Patient Family No Outcome/Goals Demonstrates Understanding of Discharge Plan Education-Improve/Maintain Start: 09/12/18 00:27 Freq: QSHIFT Status: Active Target: Protocol: Activity Type Activity Date Activity User E-Sign Co-Sign Detail Recorded Client Recorded Date Recorded By Document 09/12/18 00:28 [id number] 09/12/18 00:29 [id number] 09/12/18 00:28 PMRU Outcome: Education Outcome/Goals Demonstrate/ Verbalize Understanding of Written Discharge Instructions Demonstrates Skills Encourage Questions /GI-Improve/Maintain Start: 09/12/18 00:27 Freq: QSHIFT Status: Active Target: Protocol: Activity Type Activity Date Activity User E-Sign Co-Sign Detail Recorded Client Recorded Date Recorded By Document 09/12/18 00:28 [id number] 09/12/18 00:29 [id number] 09/12/18 00:28 PMRU Outcome: Genitourinary/ Gastrointestinal Genitourinary- Outcome/Goals Maintain/ Achieve Urinary Continence Gastrointestinal-Outcome/Goals Maintain/ Achieve Bowel Regularity in Accordance with Pt's Baseline Prevent Constipation Medication Administration Start: 09/12/18 00:27 Freq: QSHIFT Status: Active Target: Protocol: Activity Type Activity Date Activity User E-Sign Co-Sign Detail Recorded Client Recorded Date Recorded By Document 09/12/18 00:28 [id number] 09/12/18 00:29 [id number] 09/12/18 00:28 PMRU Outcome: Medication Administration Assess Patient Knowledge/Teach Med Yes Education for all Meds Outcome/Goals Patient Independent with Medication Administration at Home Family/ Caregiver Administer Medications at Home Demonstrates Understanding Is Patient Going Home on Lovenox? No Neurological- Improve/Maintain Start: 09/12/18 00:27 Freq: QSHIFT Status: Active Target: Protocol: Activity Type Activity Date Activity User E-Sign Co-Sign Detail Recorded Client Recorded Date Recorded By Document 09/12/18 00:28 [id number] 09/12/18 00:29 09/12/18 00:28 PMRU Outcome: Neurological Weakness/Aphasia Weakness Left Side Outcome/Goals Maintain/ Achieve Baseline Neurological Status Maintain/ Improve Strength/ROM Pain/Comfort- Improve/Maintain Start: 09/12/18 00:27 Freq: QSHIFT Status: Active Target: Protocol: Activity Type Activity Date Activity User E-Sign Co-Sign Detail Recorded Client Recorded Date Recorded By Document 09/12/18 00:28 [id number] 09/12/18 00:29 [id number] 09/12/18 00:28 PMRU Outcome: Pain/Comfort Outcome/Goals Demonstrates Knowledge and Use of Available Comfort Measures Achieves Acceptable Comfort/Pain Level as Determined by Patient/Condit Maintain Comfort Level Allowing Patient to Fully Participate in Rehab Outcome/Goals Met Comment pain medication given Respiratory - Improve/Maintain Start: 09/12/18 00:27 Freq: QSHIFT Status: Active Target: Protocol: Activity Type Activity Date Activity User E-Sign Co-Sign Detail Recorded Client Recorded Date Recorded By Document 09/12/18 00:28 [id number] [employer]03 09/12/18 00:29 [id number] 09/12/18 00:28 PMRU Outcome: Respiratory Does Patient Have a Trach No Outcome/Goals Maintain/ Improve O2 Sat per MD Order Maintain/ Improve Activity Tolerance Prevent Pneumonia/ Atelectasis Skin- Improve/Maintain Start: 09/12/18 00:27 Freq: QSHIFT Status: Active Target: Protocol: Activity Type Activity Date Activity User E-Sign Co-Sign Detail Recorded Client Recorded Date Recorded By Document 09/12/18 00:28 [id number] 09/12/18 00:29 [id number] 09/12/18 00:28 PMRU Outcome: Skin Skin Risk Level Medium Skin Orders Dressing Change Outcome/Goals Maintain/ Improve Skin Intergrity Surgical Incisions Healing Outcome/Goals Met Comment splint in place Medicine Note: Length of Stay: One Week Anticipated Discharge Destination: Home Tentative Discharge Date: September 19, 2018 Discharged to: Home
--- NOTE | 2018-09-12 19:05 | PN ---
Progress Note Date of Service: 09/12/18 Note: KINGSLEY CONWAY was visited. Therapy notes read and reviewed. He was discussed in interdisciplinary team rounds. He is doing fairly well, likes his therapy team. Worried about how he will get into the bathroom. Current Medications: Active Medications Generic Name Dose Route Start Last Admin Trade Name Freq PRN Reason Stop Dose Admin Acetaminophen 975 mg 09/11/18 14:00 09/12/18 14:17 Tylenol Tab* PO 975 mg Q8H PATRICK Administration Al Hydrox/Mg Hydrox/Simethicone 30 ml 09/11/18 13:35 Maalox Plus* PO Q6H PRN INDIGESTION Amlodipine Besylate 2.5 mg 09/12/18 09:00 09/12/18 08:34 Norvasc Tab* PO 2.5 mg DAILY PATRICK Administration Bisacodyl 10 mg 09/11/18 13:35 Dulcolax Supp* VT DAILY PRN CONSTIPATION Calcium/Vitamin D 2 tab 09/11/18 21:00 09/12/18 08:36 Oscal D Tab 250/125* PO 2 tab BID PATRICK Administration Docusate Sodium 100 mg 09/11/18 21:00 09/12/18 08:36 Colace Cap* PO 100 mg BID PATRICK Administration Enoxaparin Sodium 30 mg 09/12/18 09:00 09/12/18 08:37 Lovenox(*) SUBCUT 30 mg Q24H PATRICK Administration Magnesium Hydroxide 30 ml 09/11/18 13:35 Milk Of Magnesia Liq* PO Q6H PRN CONSTIPATION Oxycodone HCl 5 mg 09/11/18 13:42 Roxycodone Tab* PO Q4H PRN moderate pain Oxycodone HCl 10 mg 09/11/18 13:42 09/12/18 12:22 Roxycodone Tab* PO 10 mg Q4H PRN Administration SEVERE PAIN Senna 2 tab 09/11/18 13:35 Senokot Tab* PO BEDTIME PRN CONSTIPATION Tamsulosin HCl 0.4 mg 09/12/18 09:00 09/12/18 08:36 Flomax Cap* PO 0.4 mg DAILY PATRICK Administration Tizanidine HCl 4 mg 09/11/18 14:00 09/12/18 14:19 Zanaflex Tab* PO 4 mg TID PATRICK Administration Zolpidem Tartrate 10 mg 09/11/18 13:41 09/11/18 23:35 Ambien Tab* PO 10 mg BEDTIME PRN Administration INSOMNIA Vital Signs: Vital Signs Temp Pulse Resp BP Pulse Ox 98.1 F 96 19 95/66 98 09/12/18 17:33 09/12/18 17:33 09/12/18 17:44 09/12/18 17:33 09/12/18 17:44 Lab Results: Laboratory Results - last 24 hr 09/12/18 09/12/18 05:12 05:12 WBC 7.3 RBC 3.52 L Hgb 11.9 L Hct 34 L MCV 97 H MCH 34 H MCHC 35 RDW 13 Plt Count 182 MPV 7.7 Neut % (Auto) 56.8 Lymph % (Auto) 29.4 [place] % (Auto) 10.8 Eos % (Auto) 2.4 Baso % (Auto) 0.6 Absolute Neuts (auto) 4.1 Absolute Lymphs (auto) 2.1 Absolute Monos (auto) 0.8 Absolute Eos (auto) 0.2 Absolute Basos (auto) 0.0 Absolute Nucleated RBC 0.0 Nucleated RBC % 0.0 Sodium 137 Potassium 4.3 Chloride 103 Carbon Dioxide 28 Anion Gap 6 BUN 22 Creatinine 0.80 Est GFR ( Amer) 117.4 Est GFR (Non-Af Amer) 97.0 BUN/Creatinine Ratio 27.5 H Glucose 98 Calcium 10.2 Total Bilirubin 0.70 AST 12 L ALT 7 Alkaline Phosphatase 41 Total Protein 6.8 Albumin 4.1 Globulin 2.7 Albumin/Globulin Ratio 1.5 Exam: GENERAL: In no distress LUNGS: Clear bilaterally HEART: Reg rhythm ABDOMEN: Soft, +BS EXTREMITIES:Left ankle is splint. NEUROLOGIC: alert. Sensation intact. Muscle strength RLE 4+/5, LLE 4+/5 except ankle/foot Assessment/Plan: 1. Tendon lengthening, left ankle: NWB. PT/OT. Follow up with Dr. Marino 2. Cerebral Palsy/Spastic Diplegia: Zanaflex 3. BPH: Flomax 4. HTN: Norvasc 5. DVT Prophylaxis: Lovenox 6. Advanced Directives: Full code. Son is HCP 09/12/18 19:03
[2018-09-12] MEDS: Zolpidem TAB* 10 MG PO PRN (23:50)
[2018-09-13] MEDS: Acetaminophen TAB* 325 MG PO SCH ×3 (06:04→21:29)
[2018-09-13] MEDS: Calcium/Vitamin D TAB 250/125* TAB PO SCH ×2 (08:57→21:30)
[2018-09-13] MEDS: Enoxaparin(*) 30 MG/0.3 ML SYR SUBCUT SCH (08:57)
[2018-09-13] MEDS: Docusate CAP* 100 MG PO SCH ×2 (08:57→21:32)
[2018-09-13] MEDS: amLODIPine TAB* 5 MG PO SCH (08:57)
[2018-09-13] MEDS: Tamsulosin CAP* 0.4 MG PO SCH (08:57)
[2018-09-13] MEDS: tiZANidine TAB* 2 MG PO SCH ×3 (08:58→21:29)
[2018-09-13] MEDS: oxyCODONE TAB* 5 MG TAB PO PRN ×4 (08:58→23:08)
--- NOTE | 2018-09-13 20:57 | PN ---
Progress Note Date of Service: 09/13/18 Note: KINGSLEY CONWAY was visited. Therapy notes read and reviewed. He feels like he is doing well. He had a little back pain today. He has a history of vertebral compression fractures and had a vertebroplasty for this. Has seen Dr. Coleman for this. I spoke with Dr. Marino who says patient can try knee scooter if he wants to. A little constipated Current Medications: Active Medications Generic Name Dose Route Start Last Admin Trade Name Freq PRN Reason Stop Dose Admin Acetaminophen 975 mg 09/11/18 14:00 09/13/18 13:04 Tylenol Tab* PO 975 mg Q8H PATRICK Administration Al Hydrox/Mg Hydrox/Simethicone 30 ml 09/11/18 13:35 Maalox Plus* PO Q6H PRN INDIGESTION Amlodipine Besylate 2.5 mg 09/12/18 09:00 09/13/18 08:57 Norvasc Tab* PO 2.5 mg DAILY PATRICK Administration Bisacodyl 10 mg 09/11/18 13:35 Dulcolax Supp* [place] DAILY PRN CONSTIPATION Calcium/Vitamin D 2 tab 09/11/18 21:00 09/13/18 08:57 Oscal D Tab 250/125* PO 2 tab BID PATRICK Administration Docusate Sodium 100 mg 09/11/18 21:00 09/13/18 08:57 Colace Cap* PO 100 mg BID PATRICK Administration Enoxaparin Sodium 30 mg 09/12/18 09:00 09/13/18 08:57 Lovenox(*) SUBCUT 30 mg Q24H PATRICK Administration Magnesium Hydroxide 30 ml 09/11/18 13:35 Milk Of Magnesia Liq* PO Q6H PRN CONSTIPATION Oxycodone HCl 5 mg 09/11/18 13:42 Roxycodone Tab* PO Q4H PRN moderate pain Oxycodone HCl 10 mg 09/11/18 13:42 09/13/18 17:49 Roxycodone Tab* PO 10 mg Q4H PRN Administration SEVERE PAIN Senna 2 tab 09/11/18 13:35 Senokot Tab* PO BEDTIME PRN CONSTIPATION Tamsulosin HCl 0.4 mg 09/12/18 09:00 09/13/18 08:57 Flomax Cap* PO 0.4 mg DAILY PATRICK Administration Tizanidine HCl 4 mg 09/11/18 14:00 09/13/18 15:00 Zanaflex Tab* PO 4 mg TID PATRICK Administration Zolpidem Tartrate 10 mg 09/11/18 13:41 09/12/18 23:50 Ambien Tab* PO 10 mg BEDTIME PRN Administration INSOMNIA Vital Signs: Vital Signs Temp Pulse Resp BP Pulse Ox 97.4 F 94 19 91/76 99 09/13/18 15:59 09/13/18 15:59 09/13/18 17:49 09/13/18 15:59 09/13/18 15:59 Exam: GENERAL: In no distress LUNGS: Clear bilaterally HEART: Reg rhythm ABDOMEN: Soft, +BS EXTREMITIES:Left ankle is splint. NEUROLOGIC: alert. Sensation intact. Muscle strength RLE 4+/5, LLE 4+/5 except ankle/foot Assessment/Plan: 1. Tendon lengthening, left ankle: NWB. PT/OT. Follow up with Dr. Marino 2. Cerebral Palsy/Spastic Diplegia: Zanaflex 3. BPH: Flomax 4. HTN: Norvasc 5. DVT Prophylaxis: Lovenox 6. Advanced Directives: Full code. Son is HCP 7. Constipation: Colace/Senokot/MOM 09/13/18 20:58 09/13/18 20:58
[2018-09-13] MEDS: Senna TAB PO SCH (21:32)
[2018-09-13] MEDS: Zolpidem TAB* 10 MG PO PRN (23:08)
[2018-09-14] MEDS: Acetaminophen TAB* 325 MG PO SCH ×3 (06:30→22:09)
[2018-09-14] MEDS: tiZANidine TAB* 2 MG PO SCH ×3 (08:14→21:02)
[2018-09-14] MEDS: Enoxaparin(*) 30 MG/0.3 ML SYR SUBCUT SCH (08:14)
[2018-09-14] MEDS: amLODIPine TAB* 5 MG PO SCH (08:14)
[2018-09-14] MEDS: Tamsulosin CAP* 0.4 MG PO SCH (08:14)
[2018-09-14] MEDS: Docusate CAP* 100 MG PO SCH ×2 (08:14→20:59)
[2018-09-14] MEDS: Calcium/Vitamin D TAB 250/125* TAB PO SCH ×2 (08:16→21:01)
[2018-09-14] MEDS: oxyCODONE TAB* 5 MG TAB PO PRN ×4 (08:16→22:40)
--- NOTE | 2018-09-14 19:29 | PN ---
Progress Note Date of Service: 09/14/18 Note: KINGSLEY CONWAY was visited. Therapy notes read and reviewed. He feels like he is doing ok. He was not able to have a BM yet. Will get MOM. Will order knee scooter Current Medications: Active Medications Generic Name Dose Route Start Last Admin Trade Name Freq PRN Reason Stop Dose Admin Acetaminophen 975 mg 09/11/18 14:00 09/14/18 14:15 Tylenol Tab* PO 975 mg Q8H PATRICK Administration Al Hydrox/Mg Hydrox/Simethicone 30 ml 09/11/18 13:35 Maalox Plus* PO Q6H PRN INDIGESTION Amlodipine Besylate 2.5 mg 09/12/18 09:00 09/14/18 08:14 Norvasc Tab* PO 2.5 mg DAILY PATRICK Administration Bisacodyl 10 mg 09/11/18 13:35 Dulcolax Supp* [place] DAILY PRN CONSTIPATION Calcium/Vitamin D 2 tab 09/11/18 21:00 09/14/18 08:16 Oscal D Tab 250/125* PO 2 tab BID PATRICK Administration Docusate Sodium 100 mg 09/11/18 21:00 09/14/18 08:14 Colace Cap* PO 100 mg BID PATRICK Administration Enoxaparin Sodium 30 mg 09/12/18 09:00 09/14/18 08:14 Lovenox(*) SUBCUT 30 mg Q24H PATRICK Administration Magnesium Hydroxide 30 ml 09/11/18 13:35 Milk Of Magnesia Liq* PO Q6H PRN CONSTIPATION Oxycodone HCl 5 mg 09/11/18 13:42 Roxycodone Tab* PO Q4H PRN moderate pain Oxycodone HCl 10 mg 09/11/18 13:42 09/14/18 17:36 Roxycodone Tab* PO 10 mg Q4H PRN Administration SEVERE PAIN Senna 2 tab 09/13/18 21:00 09/13/18 21:32 Senokot Tab* PO 2 tab BEDTIME PATRICK Administration Tamsulosin HCl 0.4 mg 09/12/18 09:00 09/14/18 08:14 Flomax Cap* PO 0.4 mg DAILY PATRICK Administration Tizanidine HCl 4 mg 09/11/18 14:00 09/14/18 14:14 Zanaflex Tab* PO 4 mg TID PATRICK Administration Zolpidem Tartrate 10 mg 09/11/18 13:41 09/13/18 23:08 Ambien Tab* PO 10 mg BEDTIME PRN Administration INSOMNIA Vital Signs: Vital Signs Temp Pulse Resp BP Pulse Ox 97.8 F 79 16 83/54 98 09/14/18 16:11 09/14/18 16:11 09/14/18 17:36 09/14/18 16:11 09/14/18 16:11 Exam: GENERAL: In no distress LUNGS: Clear bilaterally HEART: Reg rhythm ABDOMEN: Soft, +BS EXTREMITIES:Left ankle is splint. NEUROLOGIC: alert. Sensation intact. Muscle strength RLE 4+/5, LLE 4+/5 except ankle/foot Assessment/Plan: 1. Tendon lengthening, left ankle: NWB. PT/OT. Follow up with Dr. Marino 2. Cerebral Palsy/Spastic Diplegia: Zanaflex 3. BPH: Flomax 4. HTN: Norvasc 5. DVT Prophylaxis: Lovenox 6. Advanced Directives: Full code. Son is HCP 7. Constipation: Colace/Senokot/MOM 09/14/18 19:30
[2018-09-14] MEDS: Senna TAB PO SCH (21:00)
[2018-09-14] MEDS: Zolpidem TAB* 10 MG PO PRN (22:10)
[2018-09-15] MEDS: Acetaminophen TAB* 325 MG PO SCH ×3 (05:26→21:12)
[2018-09-15] MEDS: oxyCODONE TAB* 5 MG TAB PO PRN ×4 (08:38→23:30)
[2018-09-15] MEDS: tiZANidine TAB* 2 MG PO SCH ×3 (08:38→21:11)
[2018-09-15] MEDS: Tamsulosin CAP* 0.4 MG PO SCH (08:38)
[2018-09-15] MEDS: Docusate CAP* 100 MG PO SCH ×2 (08:38→21:11)
[2018-09-15] MEDS: Calcium/Vitamin D TAB 250/125* TAB PO SCH ×2 (08:38→21:09)
[2018-09-15] MEDS: amLODIPine TAB* 5 MG PO SCH (08:38)
[2018-09-15] MEDS: Enoxaparin(*) 30 MG/0.3 ML SYR SUBCUT SCH (08:40)
--- NOTE | 2018-09-15 14:42 | PN ---
Progress Note Date of Service: 09/15/18 Note: KINGSLEY CONWAY was visited. Therapy notes read and reviewed. Had bowel movement today. Will keep on Senokot at bedtime. Otherwise ok. Tried scooter, it was difficult Current Medications: Active Medications Generic Name Dose Route Start Last Admin Trade Name Freq PRN Reason Stop Dose Admin Acetaminophen 975 mg 09/11/18 14:00 09/15/18 13:44 Tylenol Tab* PO 975 mg Q8H PATRICK Administration Al Hydrox/Mg Hydrox/Simethicone 30 ml 09/11/18 13:35 Maalox Plus* PO Q6H PRN INDIGESTION Amlodipine Besylate 2.5 mg 09/12/18 09:00 09/15/18 08:38 Norvasc Tab* PO 2.5 mg DAILY PATRICK Administration Bisacodyl 10 mg 09/11/18 13:35 Dulcolax Supp* [place] DAILY PRN CONSTIPATION Calcium/Vitamin D 2 tab 09/11/18 21:00 09/15/18 08:38 Oscal D Tab 250/125* PO 2 tab BID PATRICK Administration Docusate Sodium 100 mg 09/11/18 21:00 09/15/18 08:38 Colace Cap* PO 100 mg BID PATRICK Administration Enoxaparin Sodium 30 mg 09/12/18 09:00 09/15/18 08:40 Lovenox(*) SUBCUT 30 mg Q24H PATRICK Administration Magnesium Hydroxide 30 ml 09/11/18 13:35 09/14/18 21:03 Milk Of Magnesia Liq* PO 30 ml Q6H PRN Administration CONSTIPATION Oxycodone HCl 5 mg 09/11/18 13:42 Roxycodone Tab* PO Q4H PRN moderate pain Oxycodone HCl 10 mg 09/11/18 13:42 09/15/18 12:40 Roxycodone Tab* PO 10 mg Q4H PRN Administration SEVERE PAIN Senna 2 tab 09/13/18 21:00 09/14/18 21:00 Senokot Tab* PO 2 tab BEDTIME PATRICK Administration Tamsulosin HCl 0.4 mg 09/12/18 09:00 09/15/18 08:38 Flomax Cap* PO 0.4 mg DAILY PATRICK Administration Tizanidine HCl 4 mg 09/11/18 14:00 05/31/19 13:45 Zanaflex Tab* PO 4 mg TID PATRICK Administration Zolpidem Tartrate 10 mg 09/11/18 13:41 09/14/18 22:10 Ambien Tab* PO 10 mg BEDTIME PRN Administration INSOMNIA Vital Signs: Vital Signs Temp Pulse Resp BP Pulse Ox 98.3 F 86 16 132/65 100 09/15/18 06:16 09/15/18 06:16 09/15/18 12:40 09/15/18 06:16 09/15/18 06:16 Exam: GENERAL: In no distress LUNGS: Clear bilaterally HEART: Reg rhythm ABDOMEN: Soft, +BS EXTREMITIES:Left ankle is splint. NEUROLOGIC: alert. Sensation intact. Muscle strength RLE 4+/5, LLE 4+/5 except ankle/foot Assessment/Plan: 1. Tendon lengthening, left ankle: NWB. PT/OT. Follow up with Dr. Marino 2. Cerebral Palsy/Spastic Diplegia: Zanaflex 3. BPH: Flomax 4. HTN: Norvasc 5. DVT Prophylaxis: Lovenox 6. Advanced Directives: Full code. Son is HCP 7. Constipation: Colace/Senokot/MOM 09/15/18 14:42
[2018-09-15] MEDS: Senna TAB PO SCH (21:09)
[2018-09-15] MEDS: Zolpidem TAB* 10 MG PO PRN (23:30)
[2018-09-16] MEDS: Acetaminophen TAB* 325 MG PO SCH ×3 (06:02→21:43)
[2018-09-16] MEDS: oxyCODONE TAB* 5 MG TAB PO PRN ×4 (06:54→21:42)
[2018-09-16] MEDS: Docusate CAP* 100 MG PO SCH ×2 (08:02→21:43)
[2018-09-16] MEDS: Calcium/Vitamin D TAB 250/125* TAB PO SCH ×2 (08:02→21:43)
[2018-09-16] MEDS: amLODIPine TAB* 5 MG PO SCH (08:02)
[2018-09-16] MEDS: Tamsulosin CAP* 0.4 MG PO SCH (08:03)
[2018-09-16] MEDS: tiZANidine TAB* 2 MG PO SCH ×3 (08:03→21:44)
[2018-09-16] MEDS: Enoxaparin(*) 30 MG/0.3 ML SYR SUBCUT SCH (08:05)
--- NOTE | 2018-09-16 21:31 | PN ---
Progress Note Date of Service: 09/16/18 Note: KINGSLEY CONWAY was visited. Therapy notes read and reviewed. The knee scooter has proven to be unworkable. Working on shower transfers. Current Medications: Active Medications Generic Name Dose Route Start Last Admin Trade Name Freq PRN Reason Stop Dose Admin Acetaminophen 975 mg 09/11/18 14:00 09/16/18 14:03 Tylenol Tab* PO 975 mg Q8H PATRICK Administration Al Hydrox/Mg Hydrox/Simethicone 30 ml 09/11/18 13:35 Maalox Plus* PO Q6H PRN INDIGESTION Amlodipine Besylate 2.5 mg 09/12/18 09:00 09/16/18 08:02 Norvasc Tab* PO 2.5 mg DAILY PATRICK Administration Bisacodyl 10 mg 09/11/18 13:35 Dulcolax Supp* [place] DAILY PRN CONSTIPATION Calcium/Vitamin D 2 tab 09/11/18 21:00 09/16/18 08:02 Oscal D Tab 250/125* PO 2 tab BID PATRICK Administration Docusate Sodium 100 mg 09/11/18 21:00 09/16/18 08:02 Colace Cap* PO 100 mg BID PATRICK Administration Enoxaparin Sodium 30 mg 09/12/18 09:00 09/16/18 08:05 Lovenox(*) SUBCUT 30 mg Q24H PATRICK Administration Magnesium Hydroxide 30 ml 09/11/18 13:35 09/14/18 21:03 Milk Of Magnesia Liq* PO 30 ml Q6H PRN Administration CONSTIPATION Oxycodone HCl 5 mg 09/11/18 13:42 Roxycodone Tab* PO Q4H PRN moderate pain Oxycodone HCl 10 mg 09/11/18 13:42 09/16/18 16:57 Roxycodone Tab* PO 10 mg Q4H PRN Administration SEVERE PAIN Senna 2 tab 09/13/18 21:00 09/15/18 21:09 Senokot Tab* PO 2 tab BEDTIME PATRICK Administration Tamsulosin HCl 0.4 mg 09/12/18 09:00 09/16/18 08:03 Flomax Cap* PO 0.4 mg DAILY PATRICK Administration Tizanidine HCl 4 mg 09/11/18 14:00 09/16/18 14:03 Zanaflex Tab* PO 4 mg TID PATRICK Administration Zolpidem Tartrate 10 mg 09/11/18 13:41 09/15/18 23:30 Ambien Tab* PO 10 mg BEDTIME PRN Administration INSOMNIA Vital Signs: Vital Signs Temp Pulse Resp BP Pulse Ox 98.3 F 86 17 117/72 99 09/16/18 15:45 09/16/18 15:45 09/16/18 19:20 09/16/18 19:40 09/16/18 19:20 Exam: GENERAL: In no distress LUNGS: Clear bilaterally HEART: Reg rhythm ABDOMEN: Soft, +BS EXTREMITIES:Left ankle is splint. NEUROLOGIC: alert. Sensation intact. Muscle strength RLE 4+/5, LLE 4+/5 except ankle/foot Assessment/Plan: 1. Tendon lengthening, left ankle/correction of hammertoe: NWB. PT/OT. Follow up with Dr. Marino 2. Cerebral Palsy/Spastic Diplegia: Zanaflex 3. BPH: Flomax 4. HTN: Norvasc 5. DVT Prophylaxis: Lovenox 6. Advanced Directives: Full code. Son is HCP 7. Constipation: Colace/Senokot/MOM 09/16/18 21:31 09/16/18 21:32
[2018-09-16] MEDS: Senna TAB PO SCH (21:42)
[2018-09-16] MEDS: Zolpidem TAB* 10 MG PO PRN (22:49)
[2018-09-17] MEDS: Acetaminophen TAB* 325 MG PO SCH ×3 (05:57→21:41)
[2018-09-17] MEDS: Calcium/Vitamin D TAB 250/125* TAB PO SCH ×2 (08:59→21:40)
[2018-09-17] MEDS: amLODIPine TAB* 5 MG PO SCH (08:59)
[2018-09-17] MEDS: Docusate CAP* 100 MG PO SCH ×2 (09:00→21:39)
[2018-09-17] MEDS: Enoxaparin(*) 30 MG/0.3 ML SYR SUBCUT SCH (09:00)
[2018-09-17] MEDS: Tamsulosin CAP* 0.4 MG PO SCH (09:01)
[2018-09-17] MEDS: tiZANidine TAB* 2 MG PO SCH ×3 (09:01→21:39)
[2018-09-17] MEDS: oxyCODONE TAB* 5 MG TAB PO PRN ×3 (11:09→21:41)
--- NOTE | 2018-09-17 12:53 | PN ---
Progress Note Date of Service: 09/17/18 Note: KINGSLEY CONWAY was visited. Nursing notes read and reviewed. He has no complaints other than feeling achy in multiple joints, due to the weather Current Medications: Active Medications Generic Name Dose Route Start Last Admin Trade Name Freq PRN Reason Stop Dose Admin Acetaminophen 975 mg 09/11/18 14:00 09/17/18 05:57 Tylenol Tab* PO 975 mg Q8H PATRICK Administration Al Hydrox/Mg Hydrox/Simethicone 30 ml 09/11/18 13:35 Maalox Plus* PO Q6H PRN INDIGESTION Amlodipine Besylate 2.5 mg 09/12/18 09:00 09/17/18 08:59 Norvasc Tab* PO 2.5 mg DAILY PATRICK Administration Bisacodyl 10 mg 09/11/18 13:35 Dulcolax Supp* [place] DAILY PRN CONSTIPATION Calcium/Vitamin D 2 tab 09/11/18 21:00 09/17/18 08:59 Oscal D Tab 250/125* PO 2 tab BID PATRICK Administration Docusate Sodium 100 mg 09/11/18 21:00 09/17/18 09:00 Colace Cap* PO 100 mg BID PATRICK Administration Enoxaparin Sodium 30 mg 09/12/18 09:00 09/17/18 09:00 Lovenox(*) SUBCUT 30 mg Q24H PATRICK Administration Magnesium Hydroxide 30 ml 09/11/18 13:35 09/14/18 21:03 Milk Of Magnesia Liq* PO 30 ml Q6H PRN Administration CONSTIPATION Oxycodone HCl 5 mg 09/11/18 13:42 09/17/18 05:57 Roxycodone Tab* PO 5 mg Q4H PRN Administration moderate pain Oxycodone HCl 10 mg 09/11/18 13:42 09/17/18 11:09 Roxycodone Tab* PO 10 mg Q4H PRN Administration SEVERE PAIN Senna 2 tab 09/13/18 21:00 09/16/18 21:42 Senokot Tab* PO 2 tab BEDTIME PATRICK Administration Tamsulosin HCl 0.4 mg 09/12/18 09:00 09/17/18 09:01 Flomax Cap* PO 0.4 mg DAILY PATRICK Administration Tizanidine HCl 4 mg 09/11/18 14:00 09/17/18 09:01 Zanaflex Tab* PO 4 mg TID PATRICK Administration Zolpidem Tartrate 10 mg 09/11/18 13:41 09/16/18 22:49 Ambien Tab* PO 10 mg BEDTIME PRN Administration INSOMNIA Vital Signs: Vital Signs Temp Pulse Resp BP Pulse Ox 98.2 F 85 18 94/61 99 09/17/18 06:41 09/17/18 06:41 09/17/18 11:09 09/17/18 06:41 09/17/18 08:00 Exam: GENERAL: In no distress LUNGS: Clear bilaterally HEART: Reg rhythm ABDOMEN: Soft, +BS EXTREMITIES:Left ankle is splint. NEUROLOGIC: alert. Sensation intact. Muscle strength RLE 4+/5, LLE 4+/5 except ankle/foot Assessment/Plan: 1. Tendon lengthening, left ankle/correction of hammertoe: NWB. PT/OT. Follow up with Dr. Marino 2. Cerebral Palsy/Spastic Diplegia: Zanaflex 3. BPH: Flomax 4. HTN: Norvasc 5. DVT Prophylaxis: Lovenox 6. Advanced Directives: Full code. Son is HCP 7. Constipation: Colace/Senokot/MOM 09/17/18 12:54
[2018-09-17] MEDS: Senna TAB PO SCH (21:39)
[2018-09-18] MEDS: oxyCODONE TAB* 5 MG TAB PO PRN ×5 (03:53→21:23)
[2018-09-18] MEDS: Acetaminophen TAB* 325 MG PO SCH (05:39)
[2018-09-18] MEDS: amLODIPine TAB* 5 MG PO SCH (07:41)
[2018-09-18] MEDS: tiZANidine TAB* 2 MG PO SCH ×3 (07:41→21:24)
[2018-09-18] MEDS: Docusate CAP* 100 MG PO SCH ×2 (07:42→21:25)
[2018-09-18] MEDS: Tamsulosin CAP* 0.4 MG PO SCH (07:42)
[2018-09-18] MEDS: Calcium/Vitamin D TAB 250/125* TAB PO SCH ×2 (07:42→21:24)
[2018-09-18] MEDS: Enoxaparin(*) 30 MG/0.3 ML SYR SUBCUT SCH (07:44)
[2018-09-18] MEDS ORDERED: Acetaminophen TAB* 325 MG PO PRN (12:47)
--- NOTE | 2018-09-18 13:02 | PN ---
Progress Note Date of Service: 09/18/18 Note: KINGSLEY CONWAY was visited. Therapy notes read and reviewed. He is ready for discharge tomorrow. I had discussed with Dr. Marino and will send him home on ASA for DVT prophylaxis. Current Medications: Active Medications Generic Name Dose Route Start Last Admin Trade Name Freq PRN Reason Stop Dose Admin Acetaminophen 650 mg 09/18/18 12:47 Tylenol Tab* PO Q6H PRN FEVER/PAIN Al Hydrox/Mg Hydrox/Simethicone 30 ml 09/11/18 13:35 Maalox Plus* PO Q6H PRN INDIGESTION Aspirin 325 mg 09/19/18 09:00 Ecotrin Ec Tab* PO DAILY PATRICK Bisacodyl 10 mg 09/11/18 13:35 Dulcolax Supp* [place] DAILY PRN CONSTIPATION Calcium/Vitamin D 2 tab 09/11/18 21:00 09/18/18 07:42 Oscal D Tab 250/125* PO 2 tab BID PATRICK Administration Docusate Sodium 100 mg 09/11/18 21:00 09/18/18 07:42 Colace Cap* PO 100 mg BID PATRICK Administration Magnesium Hydroxide 30 ml 09/11/18 13:35 09/14/18 21:03 Milk Of Magnesia Liq* PO 30 ml Q6H PRN Administration CONSTIPATION Oxycodone HCl 5 mg 09/11/18 13:42 09/17/18 05:57 Roxycodone Tab* PO 5 mg Q4H PRN Administration moderate pain Oxycodone HCl 10 mg 09/11/18 13:42 09/18/18 09:21 Roxycodone Tab* PO 10 mg Q4H PRN Administration SEVERE PAIN Senna 2 tab 09/13/18 21:00 09/17/18 21:39 Senokot Tab* PO 2 tab BEDTIME PATRICK Administration Tamsulosin HCl 0.4 mg 09/12/18 09:00 09/18/18 07:42 Flomax Cap* PO 0.4 mg DAILY PATRICK Administration Tizanidine HCl 4 mg 09/11/18 14:00 09/18/18 07:41 Zanaflex Tab* PO 4 mg TID PATRICK Administration Zolpidem Tartrate 10 mg 09/11/18 13:41 09/16/18 22:49 Ambien Tab* PO 10 mg BEDTIME PRN Administration INSOMNIA Vital Signs: Vital Signs Temp Pulse Resp BP Pulse Ox 98.1 F 85 16 95/62 98 09/18/18 06:26 09/18/18 06:26 09/18/18 09:21 09/18/18 06:26 09/18/18 06:26 Exam: GENERAL: In no distress LUNGS: Clear bilaterally HEART: Reg rhythm ABDOMEN: Soft, +BS EXTREMITIES:Left ankle is splint. NEUROLOGIC: alert. Sensation intact. Muscle strength RLE 4+/5, LLE 4+/5 except ankle/foot Assessment/Plan: 1. Tendon lengthening, left ankle/correction of hammertoe: NWB. PT/OT. Follow up with Dr. Marino TuesdaySeptember 20 2. Cerebral Palsy/Spastic Diplegia: Zanaflex 3. BPH: Flomax 4. HTN: His BPs have been soft. He was not on Norvasc at home, will stop Norvasc 5. DVT Prophylaxis: Lovenox, ASA after d/c 6. Advanced Directives: Full code. Son is HCP 7. Constipation: Colace/Senokot/MOM 09/18/18 13:02
[2018-09-18] MEDS: Senna TAB PO SCH (21:25)
[2018-09-18] MEDS: Zolpidem TAB* 10 MG PO PRN (22:49)
[2018-09-19 06:32] VITALS: BP 116/69
[2018-09-19] MEDS: Calcium/Vitamin D TAB 250/125* TAB PO SCH (08:12)
[2018-09-19] MEDS: oxyCODONE TAB* 5 MG TAB PO PRN (08:13)
[2018-09-19] MEDS: Docusate CAP* 100 MG PO SCH (08:13)
[2018-09-19] MEDS: tiZANidine TAB* 2 MG PO SCH (08:13)
[2018-09-19] MEDS: Tamsulosin CAP* 0.4 MG PO SCH (08:13)
[2018-09-19] MEDS ORDERED: Aspirin EC TAB* 325 MG PO SCH (09:00)
--- NOTE | 2018-09-20 02:37 | DS ---
CC: Dr. Sanju Talley * DISCHARGE SUMMARY: DATE OF ADMISSION: 09/11/18 DATE OF DISCHARGE: 09/19/18 PRIMARY CARE PHYSICIAN: Dr. Sanju Talley in [place]. DISCHARGE DIAGNOSES: 1. Tendon lengthening, left ankle and correction of hammertoe in left foot. 2. Cerebral palsy/spastic diplegia. 3. Benign prostatic hypertrophy. HISTORY OF PRESENT ILLNESS AND HOSPITAL COURSE: For a complete history of the events leading up to his rehab stay, please see the history and physical dictated by Dr. Shanique Alexandra on 09/11/18. While on the rehab unit, the patient remained fairly stable from the medical point of view. He was maintained on Lovenox for DVT prophylaxis. After discussing with his orthopedic surgeon, Dr. Max, it was decided to send the patient home on aspirin for DVT prophylaxis rather than Lovenox. The patient was otherwise medically stable. His blood pressures were on the low side. He had been started on Norvasc in the Acute Service, but it was felt that these were making his blood pressures too low and this was discontinued. He was seen by both physical and occupational therapy and made good gains with both disciplines. With physical therapy at the time of admission, the patient required contact guard to transfer, contact guard to ambulate with a rolling walker. He was able to maintain his non-weightbearing status with occupational therapy. At the time of admission, he needed supervision for upper body dressing, moderate amount of assistance for lower body dressing, minimal amount of assistance for toileting and for transfers. By the time of discharge, the patient was modified independent for upper and lower body dressing, modified independent for toileting and toilet transfers, supervision for tub transfers, independent for transfers, independent ambulating 150 feet with a rolling walker. The patient was discharged home on 09/19/18. DISCHARGE DIET: Regular. DISCHARGE MEDICATIONS: 1. Aspirin 325 mg daily. 2. Oxycodone 5 to 10 mg every 4 hours as needed. 3. Flomax 0.4 mg daily. 4. Zanaflex 4 mg 3 times a day. 5. Ambien 10 mg as needed at bedtime. 6. Senokot 2 tablets at bedtime. CONDITION AT DISCHARGE: Good SERVICES AFTER DISCHARGE: Through [facility], he will have home nursing, home physical therapy, home occupational therapy, and a home health aide. Follow up with Dr. Ayden Max on 09/20/18. TIME SPENT: Time for this discharge was approximately 50 minutes, greater than half of which was spent with the patient discussing post-rehab therapies, pain management and orthopedic followup. [id number]/[facility] #: [id number] VALARIE
== END 2018-09-19 11:45 | disposition home health service (06) | DRG 860 ==
LOC: UNDOADMIN 09:07 → PMRU 09:07
PROVIDERS: ADMIT Physical Medicine & Rehabilitation; ATTEND Physical Medicine & Rehabilitation
PROC: F07Z5ZZ Bed Mobility Treatment (ICD-10-PCS; principal; 2018-09-11)
PROC: F07Z9ZZ Gait Training/Functional Ambulation Treatment (ICD-10-PCS; 2018-09-11)
PROC: F07Z8ZZ Transfer Training Treatment (ICD-10-PCS; 2018-09-11)
PROC: F08Z0ZZ Bathing/Showering Techniques Treatment (ICD-10-PCS; 2018-09-11)
PROC: F08Z1ZZ Dressing Techniques Treatment (ICD-10-PCS; 2018-09-11)
PROC: F08Z3ZZ Feeding/Eating Treatment (ICD-10-PCS; 2018-09-11)
DX: Z47.89 Encounter for other orthopedic aftercare (principal); G80.1 Spastic diplegic cerebral palsy; N40.0 Benign prostatic hyperplasia without lower urinary tract symptoms; M19.90 Unspecified osteoarthritis, unspecified site; F32.9 Major depressive disorder, single episode, unspecified; M81.0 Age-related osteoporosis without current pathological fracture; R00.0 Tachycardia, unspecified; K59.00 Constipation, unspecified; G47.00 Insomnia, unspecified; F10.21 Alcohol dependence, in remission; Z96.642 Presence of left artificial hip joint; Q66.89 Other specified congenital deformities of feet; Z79.1 Long term (current) use of non-steroidal anti-inflammatories (NSAID); Z79.899 Other long term (current) drug therapy; Z88.8 Allergy status to other drugs, medicaments and biological substances; Z80.0 Family history of malignant neoplasm of digestive organs; Z81.1 Family history of alcohol abuse and dependence; Z84.1 Family history of disorders of kidney and ureter; Z87.891 Personal history of nicotine dependence
CPT/HCPCS: 36415; 80053; 85025; A9270-GY; J1650